=== PATIENT | female | born 1955 | race Caucasian/White ===

== ENCOUNTER 2021-10-29 13:00 | Outpatient (CLI) | payer OTHER | END 2021-10-29 13:01 | disposition home or self-care (01) | LOC: LABBT 13:00 | PROVIDERS: ATTEND Pain Medicine Pain Medicine | DX: M54.17 Radiculopathy, lumbosacral region (principal); Z20.822 Contact with and (suspected) exposure to COVID-19 | CPT/HCPCS: U0003; U0005 ==

== ENCOUNTER 2021-11-02 11:50 | Day surgery (SDC) | payer OTHER ==
[2021-10-29 09:16] VITALS: BMI 22.0
[~2021-11-02 11:50] MED LIST: Gadobenate Dimeglumine 529 MG/1 ML (20ML VIAL) ONE
[2021-11-02] MEDS ORDERED: Ondansetron PF 4 MG/2 ML Vial ONE (15:50)
[2021-11-02] MEDS ORDERED: fentaNYL Citrate/PF 100 MCG/2 ML SYRINGE ONE (16:04)
[2021-11-02] MEDS ORDERED: Famotidine/PF 20 mg/2ml Vial ONE ×3 (17:20→17:21)
[2021-11-02 18:25] LABS: Estimated GFR-MDRD - POC Greater than 90
== END 2021-11-02 20:25 | disposition home or self-care (01) ==
LOC: MRI 11:50
PROVIDERS: ATTEND Pain Medicine Pain Medicine
DX: M47.22 Other spondylosis with radiculopathy, cervical region (principal); M48.02 Spinal stenosis, cervical region; M54.17 Radiculopathy, lumbosacral region; M51.26 Other intervertebral disc displacement, lumbar region; Z79.890 Hormone replacement therapy; Z79.899 Other long term (current) drug therapy; Z88.1 Allergy status to other antibiotic agents; Z88.2 Allergy status to sulfonamides; Z88.5 Allergy status to narcotic agent; Z88.6 Allergy status to analgesic agent; Z91.041 Radiographic dye allergy status
CPT/HCPCS: 72156; 72158; 82565; A9577; J2405; S0028

== ENCOUNTER 2023-06-22 11:59 | Outpatient (CLI) | payer MEDICARE ==
[2023-06-22 13:33] LABS: INR-International Normal Ratio 0.9; Prothrombin Time 9.9 sec (9.5-12.1)
== END 2023-06-22 12:00 | disposition home or self-care (01) ==
LOC: LABBT 11:59
PROVIDERS: ATTEND Orthopaedic Surgery
DX: Z01.812 Encounter for preprocedural laboratory examination (principal); M17.11 Unilateral primary osteoarthritis, right knee
CPT/HCPCS: 85610; 87081

== ENCOUNTER 2023-06-28 05:35 | Inpatient (IN) | payer MEDICARE ==
[2023-06-22 12:21] VITALS: BMI 23.4
[2023-06-28] MEDS ORDERED: Sodium Chloride 0.9% 100 ML ONE ×3 (06:02→08:03)
[2023-06-28] MEDS ORDERED: Tranexamic Acid 1,000 MG/10 ML VIAL ONE (06:02)
[2023-06-28] MEDS ORDERED: fentaNYL 50 mcg/mL 1 mL Vial ONE ×2 (06:08→06:53)
[2023-06-28] MEDS ORDERED: EPINEPHrine 1 MG/ML VIAL ONE ×2 (06:08→06:51)
[2023-06-28] MEDS ORDERED: Midazolam HCl 2 mg/2 ml Vial ONE (06:08)
[2023-06-28] MEDS ORDERED: Bupivacaine PF 0.5% 30 ML VIAL ONE (06:09)
[2023-06-28] MEDS ORDERED: Lidocaine 1% (PF) 30 ML VIAL ONE (06:09)
[2023-06-28] MEDS ORDERED: Vancomycin 1 GM/200 ML (FROZEN) BAG ONE (06:45)
[2023-06-28] MEDS ORDERED: CEFAZOLIN 2 GM VIAL ONE (06:52)
[2023-06-28] MEDS ORDERED: Bupivacaine 0.25% HCL 30 ML VIAL ONE (06:52)
[2023-06-28] MEDS ORDERED: PROPOFOL 40 ML ONE (07:11)
[2023-06-28] MEDS ORDERED: Dexmedetomidine 200 MCG/2 ML VIAL ONE (07:17)
[2023-06-28] MEDS ORDERED: Dexamethasone 4 mg/ml Vial ONE (07:17)
[2023-06-28] MEDS ORDERED: Ondansetron PF 4 MG/2 ML Vial ONE (07:17)
[2023-06-28] MEDS ORDERED: Lidocaine 2% PF 5 ML VIAL ONE ×2 (07:19→08:43)
[2023-06-28] MEDS ORDERED: diphenhydrAMINE 50 MG/ML VIAL ONE (07:50)
[2023-06-28] MEDS ORDERED: fentaNYL PF 100 MCG/2 ML SYRINGE ONE (07:58)
[2023-06-28] MEDS ORDERED: Sodium Chloride 0.9% 250 ML 250 ML ONE (08:03)
[2023-06-28] MEDS ORDERED: NEOSTIGMINE 3 MG/3 ML SYR 3 MG/3 ML SYRINGE ONE (08:04)
[2023-06-28] MEDS ORDERED: PHENYLEPHRINE-NS 100 MCG/ML 10 ML SYRINGE ONE (08:04)
[2023-06-28] MEDS ORDERED: fentaNYL 50 mcg/mL 1 mL Vial SLOW IVP PRN (08:12)
[2023-06-28] MEDS ORDERED: Zolpidem Tartrate 5 MG TAB PO PRN ×2 (08:15→09:43)
[2023-06-28] MEDS ORDERED: HYDROcodone/Acetaminophen 10/325 mg Tablet PO PRN ×2 (08:15)
[2023-06-28] MEDS ORDERED: Promethazine HCl 25 MG/ML VIAL IM PRN ×3 (08:15→10:45)
[2023-06-28] MEDS ORDERED: Ropivacaine 0.2% 550 ML 550 ML NERVE BLCK SCH (08:15)
[2023-06-28] MEDS ORDERED: traMADol HCl 50 MG TAB PO PRN ×2 (08:15)
[2023-06-28] MEDS ORDERED: Ondansetron PF 4 MG/2 ML Vial IVP PRN ×2 (08:15→09:43)
[2023-06-28] MEDS ORDERED: Ketamine In 0.9 % NaCl 50 MG/5 ML SYRINGE ONE (08:36)
[2023-06-28] MEDS ORDERED: Ketorolac Tromethamine 30 MG (1 mL) VIAL ONE (08:37)
[2023-06-28] MEDS ORDERED: Glycopyrrolate 0.2 MG/ML 5 ML SYRINGE ONE (08:39)
[2023-06-28] MEDS ORDERED: diphenhydrAMINE 25 MG CAP PO PRN ×2 (09:43→10:45)
[2023-06-28] MEDS ORDERED: Acetaminophen 325 MG TAB PO PRN (09:43)
[2023-06-28] MEDS ORDERED: HYDROmorphone 2 MG/ML VIAL ONE (10:01)
[2023-06-28] MEDS ORDERED: Naloxone HCl 0.4 mg/ml Vial IV PRN (10:45)
[2023-06-28] MEDS ORDERED: diphenhydrAMINE 50 MG/ML VIAL IM/IV PRN (10:45)
[2023-06-28] MEDS: Ferrous Gluconate 324 MG TAB PO SCH (15:47)
[2023-06-28] MEDS: Ketorolac Tromethamine 30 MG (1 mL) VIAL IVP SCH (15:47)
[2023-06-28] MEDS: Senokot S 8.6-50 MG TAB PO SCH (15:47)
[2023-06-28] MEDS: Multivitamin W/ Minerals 1 TAB PO SCH (15:47)
[2023-06-28] MEDS: Aspirin 81 mg Enteric Coated Tablet PO SCH (15:51)
[2023-06-28] MEDS: CEFAZOLIN 2 GM in Sodium Chloride 0.9% 100 ML IVPB SCH (15:52)
[2023-06-28] MEDS: Acetaminophen 500 MG TAB PO SCH (15:53)
[2023-06-28] MEDS: Sodium Chloride 0.9% 1,000 ML IV SCH (15:54)
[2023-06-29] MEDS: Zolpidem Tartrate 5 MG TAB PO PRN (00:31)
[2023-06-29 04:42] LABS: Hematocrit 30.6 % (36.0-47.0); Hemoglobin 10.2 g/dL (12.0-16.0); Mean Corpuscular HGB CONC 33.3 g/dL (32.0-36.0); Mean Corpuscular Hemoglobin 31.7 pg (27.0-31.0); Mean Platelet Volume 9.9 fL (7.4-10.4); Platelet Count 256 10x3/uL (130-400); Red Blood Cell (RBC) Count 3.22 mill/uL (4.20-5.40); White Blood Cell (WBC) Count 14.4 10x3/uL (4.8-10.8)
[2023-06-29] MEDS: Levothyroxine Sodium 75 MCG TAB PO SCH (05:25)
[2023-06-29] MEDS: HYDROmorphone/PF 10 MG in Sodium Chloride 0.9% 99 ML IVPB PRN (06:10)
[2023-06-29] MEDS: Multivit, Therapeutic 1 TAB PO SCH (09:10)
[2023-06-29] MEDS: Pioglitazone HCl 15 MG TAB PO SCH (09:10)
[2023-06-29] MEDS: Cyclobenzaprine 10 MG TAB PO PRN (09:10)
[2023-06-29] MEDS: Raloxifene 60 MG TAB PO SCH (09:10)
[2023-06-29] MEDS: Losartan 25 MG TAB PO SCH (17:44)
[2023-06-29] MEDS: Amlodipine 5 MG TAB PO SCH (17:45)
[2023-06-30 04:17] LABS: Hematocrit 30.7 % (36.0-47.0); Mean Corpuscular HGB CONC 32.6 g/dL (32.0-36.0); Mean Corpuscular Hemoglobin 31.6 pg (27.0-31.0); Mean Corpuscular Volume 97.2 fl (78.0-98.0); Mean Platelet Volume 9.6 fL (7.4-10.4); Platelet Count 225 10x3/uL (130-400); RBC Distribution Width 13.1 % (11.5-14.5); Red Blood Cell (RBC) Count 3.16 mill/uL (4.20-5.40); White Blood Cell (WBC) Count 10.3 10x3/uL (4.8-10.8)
[2023-06-30] MEDS: Ondansetron PF 4 MG/2 ML Vial IVP PRN (06:11)
[2023-06-30] MEDS: Amlodipine 5 MG TAB PO SCH (09:29)
[2023-06-30] MEDS: Losartan 25 MG TAB PO SCH (09:29)
[2023-06-30] MEDS: FENTANYL 25 MCG TOP SCH (14:17)
[2023-06-30] MEDS: Morphine IR Tab 15 MG TAB PO SCH (14:18)
[2023-07-01 08:00] VITALS: BP 168/81; TEMP 98.4
== END 2023-07-01 11:24 | disposition home or self-care (01) | DRG 470 ==
LOC: SDC 05:35 → SJJU 12:24 → OBSVTOIN 06-29 10:46
PROVIDERS: ADMIT Orthopaedic Surgery; ATTEND Orthopaedic Surgery
PROC: 0SRC0J9 Replacement of Right Knee Joint with Synthetic Substitute, Cemented, Open Approach (ICD-10-PCS; principal; 2023-06-28)
PROC: 3E033XZ Introduction of Vasopressor into Peripheral Vein, Percutaneous Approach (ICD-10-PCS; 2023-06-28)
DX: M17.11 Unilateral primary osteoarthritis, right knee (principal); E11.9 Type 2 diabetes mellitus without complications; M81.0 Age-related osteoporosis without current pathological fracture; G89.29 Other chronic pain; M11.261 Other chondrocalcinosis, right knee; M11.262 Other chondrocalcinosis, left knee; Z98.890 Other specified postprocedural states
CPT/HCPCS: 36415; 85027; 96365; 96375; 96376; A4306; C1713; C1776; G0378; J0171; J0665; J1100; J1170; J1200; J1885; J2001; J2250; J2405; J2704; J2795; J3010; J3370-JW; J3490; J7050